=== PATIENT | male | born 1980 | race Two or more races ===

== ENCOUNTER 2020-02-04 02:10 | Emergency (ER) | payer SELFPAY ==
[~2020-02-04] VITALS: Ht 165.1 cm; Wt 79.4 kg
[2020-02-04 02:22] VITALS: BP 133/90
== END 2020-02-04 02:38 | disposition home or self-care (01) ==
LOC: EDBD 02:15 → ER 02:15
DX: F15.10 Other stimulant abuse, uncomplicated (principal); F41.9 Anxiety disorder, unspecified

== ENCOUNTER → 2020-02-04 | Emergency (ER) | payer SELFPAY ==
[~2020-02-04] VITALS: Ht 165.1 cm; Wt 79.4 kg
[~2020-02-04] MED LIST: LORAZEPAM INJ 2 MG/ML VIAL IM ONE; LORAZEPAM INJ 2 MG/ML VIAL ONE; OLANZAPINE 10 MG VIAL IM ONE
[2020-02-04 09:30] LABS: BASOPHILS # (AUTO) 0.2 /CMM (0.0-0.2); BASOPHILS % (AUTO) 1.5 % (0.0-2.0); EOSINOPHILS % (AUTO) 0.3 % (0.0-6.0); HEMATOCRIT 44 % (39-51); HEMOGLOBIN 14.9 g/dL (13.5-17.5); LYMPHOCYTES # (AUTO) 0.7 /CMM (0.8-4.8); LYMPHOCYTES % (AUTO) 5.2 % (20.0-44.0); MEAN CORPUSCULAR HGB CONC 34 g/dl (31.0-36.0); MEAN CORPUSCULAR VOLUME 87 fL (80-96); MONOCYTES # (AUTO) 0.7 /CMM (0.1-1.30); MONOCYTES % (AUTO) 5.4 % (2.0-12.0); NEUTROPHILS # (AUTO) 11.3 /CMM (1.8-8.9); NEUTROPHILS % (AUTO) 87.6 % (43.0-81.0); PLATELET COUNT (AUTO) 222 /CMM (150-450); RED BLOOD CELL COUNT(AUTO) 5.01 MIL/uL (4.5-6.0); WHITE BLOOD COUNT (AUTO) 12.8 K/uL (4.3-11.0)
[2020-02-04 09:37] LABS: CALCIUM, SERUM 8.7 mg/dL (8.5-10.1); CARBON DIOXIDE 26 mmol/L (21-32); CHLORIDE 101 mmol/L (98-107); CREATININE 1.2 mg/dL (0.6-1.3); GLUCOSE 107 mg/dL (74-106); POTASSIUM 3.4 mmol/L (3.5-5.1); SODIUM SERUM 139 mmol/L (136-145); UREA NITROGEN, BLOOD 12 mg/dL (7-18)
--- NOTE | 2020-02-04 09:41 | NUR ---
PT REC'D TO [facility] AT HOME ATIVAN 1 MG IM RT DELTOID UA SENT TO LAB AND LABS DRAWNS SENT TO LAB
[2020-02-04 09:42] LABS: ALANINE AMINOTRANSFERASE 29 U/L (12-78); ALBUMIN 4.5 g/dL (3.4-5.0); ALCOHOL, BLOOD < 3 mg/dL (0-0); ALKALINE PHOSPHATASE 78 U/L (46-116); ASPARTATE AMINOTRANSFERASE 32 U/L (15-37); BILIRUBIN,DIRECT 0.1 mg/dL (0.0-0.2); BILIRUBIN,TOTAL 0.5 mg/dL (0.2-1.0); TOTAL PROTEIN, SERUM 8.7 g/dL (6.4-8.2)
[2020-02-04 09:43] LABS: ACETAMINOPHEN < 2 ug/ml (10-30); SALICYLATE 0.5 mg/dL (2.8-20.0)
[2020-02-04 10:26] LABS: APPEARANCE,URINE Clear (CLEAR); BILIRUBIN,URINE Negative (NEGATIVE); BLOOD, URINE Negative Ery/uL (NEGATIVE); COLOR,URINE Yellow (YELLOW); KETONES,URINE Negative (NEGATIVE); LEUKOCYTE ESTERASE ,URINE Negative (NEGATIVE); NITRITE, URINE Negative (NEGATIVE); PH,URINE 5.5 (5.0-8.0); PROTEIN,URINE Negative (NEGATIVE); UGLUCOSE Negative (NEGATIVE); UROBILINOGEN,URINE 0.2 EU/dL (0.2)
--- NOTE | 2020-02-04 12:16 | NUR ---
PT GIVEN ZYPREXXA 5 MG IM LEFT DELTOID IM TOLERATED WELL VSS
--- NOTE | 2020-02-04 13:55 | NUR ---
PT SPOKE WITH SG OK TO LEAVE NOT SI HAS RESORCES GIVEN BUS CARD STABLE AT D/C
--- NOTE | 2020-02-04 13:56 | NUR ---
Patient discharged to home in stable condition. Written and verbal after care instructions given. Patient verbalizes understanding of instruction.
[2020-02-04 13:57] VITALS: BP 152/79
== END | disposition home or self-care (01) ==
LOC: ER 08:44
DX: F19.951 Other psychoactive substance use, unspecified with psychoactive substance-induced psychotic disorder with hallucinations (principal); F15.10 Other stimulant abuse, uncomplicated; R44.0 Auditory hallucinations; R45.851 Suicidal ideations; R45.850 Homicidal ideations; R00.0 Tachycardia, unspecified; F32.9 Major depressive disorder, single episode, unspecified; Z59.0 Homelessness
CPT/HCPCS: 36415; 80048; 80076; 80305; 80307; 80329; 81001; 85025; 96372 ×2; 99284; G0480; J2060; J3490; 81000-TC